=== PATIENT | male | born 1945 ===

== ENCOUNTER 2018-06-24 13:33 | Emergency (ER) | payer MEDICARE ==
[2018-06-24] MEDS ORDERED: Albuterol-Ipratrop 3 mg / 0.5 (3 ml) UD ONE (13:58)
[2018-06-24] MEDS ORDERED: Albuterol-Ipratrop 3 mg / 0.5 (3 ml) UD IH STA (14:02)
[2018-06-24] MEDS ORDERED: Albuterol 0.083% Inhal Sol (2.5 mg/3 mL) UD INH STA (14:04)
[2018-06-24] MEDS ORDERED: Albuterol 0.083% Inhal Sol (2.5 mg/3 mL) UD ONE (14:17)
--- NOTE | 2018-06-24 15:03 | RAD ---
Date of service: 06/24/2018 HISTORY: cough/wheezing COMPARISON: No prior. TECHNIQUE: Chest PA and lateral FINDINGS: LUNGS: Small opacities at the left lower lobe may represent atelectasis or scar tissue. PLEURA: No significant pleural effusion identified. No pneumothorax apparent. CARDIOVASCULAR: No aortic atherosclerotic calcification present. Normal cardiac size. No pulmonary vascular congestion. OSSEOUS STRUCTURES: No significant abnormalities. VISUALIZED UPPER ABDOMEN: Normal. OTHER FINDINGS: None. IMPRESSION: Small opacities at the left lower lobe may represent atelectasis or scar tissue.
--- NOTE | 2018-06-24 15:14 | C.PDOC ---
History Of Present Illness 73 y/o male presents to ED stating that about a month ago, he got a flu shot by Dr. Lemus and has developed respiratory symptoms since then. Patient states that he is not getting any better and for the last couple of days, he started coughing more with some colored sputum. Patient also complains of body aches and headache but denies any rash, vomiting, diarrhea, or other physical complaints. Time Seen by Provider: 06/24/18 13:40 Chief Complaint (Nursing): Cough, Cold, Congestion History Per: Patient History/Exam Limitations: no limitations Onset/Duration Of Symptoms: Days Current Symptoms Are (Timing): Still Present Past Medical History Reviewed: Historical Data, Nursing Documentation, Vital Signs Vital Signs: Last Vital Signs Temp 98.2 F 06/24/18 13:35 Pulse 87 06/24/18 13:35 Resp 17 06/24/18 13:35 BP 148/81 06/24/18 13:35 Pulse Ox 99 06/24/18 13:35 - Medical History PMH: Arthritis, HTN, Hypercholesterolemia, Hyperlipidemia Family History: States: Hypertension (father) - Social History Hx Alcohol Use: No Hx Substance Use: No - Immunization History Hx Tetanus Toxoid Vaccination: No Hx Influenza Vaccination: No Hx Pneumococcal Vaccination: No Review Of Systems Except As Marked, All Systems Reviewed And Found Negative. Constitutional: Positive for: Weakness Respiratory: Positive for: Cough, Shortness of Breath Gastrointestinal: Negative for: Vomiting, Diarrhea Skin: Negative for: Rash Physical Exam - Physical Exam Appears: Non-toxic, No Acute Distress Skin: Warm, Dry, No Rash Head: Atraumatic, Normacephalic Eye(s): bilateral: Normal Inspection, PERRL, EOMI Oral Mucosa: Moist Throat: Normal Neck: Supple Chest: Symmetrical Cardiovascular: Rhythm Regular, No Murmur Respiratory: Normal Breath Sounds, No Rales, No Rhonchi, Wheezing Gastrointestinal/Abdominal: Soft, No Tenderness Extremity: Bilateral: Atraumatic, Normal Color And Temperature, Normal ROM Neurological/Psych: Oriented x3, Normal Speech ED Course And Treatment O2 Sat by Pulse Oximetry: 99 (RA) Pulse Ox Interpretation: Normal - Other Rad Chest XR X-Ray: Read By Radiologist Interpretation: FINDINGS: LUNGS: Small opacities at the left lower lobe may represent atelectasis or scar tissue. PLEURA: No significant pleural effusion identified. No pneumothorax apparent. CARDIOVASCULAR: No aortic atherosclerotic calcification present. Normal cardiac size. No pulmonary vascular congestion. OSSEOUS STRUCTURES: No significant abnormalities. VISUALIZED UPPER ABDOMEN: Normal. OTHER FINDINGS: None. IMPRESSION: Small opacities at the left lower lobe may represent atelectasis or scar tissue. Progress Note: Gave patient nebulizer and ordered chest x-ray. On re-evaluation, patient is resting comfortably and feeling better. Patient will be discharged home and was instructed to follow up with PMD in 1-2 days for further evaluation. Disposition - Disposition Referrals: Eddie Lemus MD [Medical Doctor] - Disposition: HOME/ ROUTINE Disposition Time: 15:11 Condition: STABLE Additional Instructions: Follow up with PMD within 1-2 days. return to ED if feel worse. Prescriptions: predniSONE [predniSONE Tab] 2 tab PO DAILY #6 tab Albuterol Sulfate [Proair Hfa] 1 puff IH Q6 PRN #1 inh PRN Reason: Cough Benzonatate [Tessalon Perles] 2 tab PO TID #60 sgl Azithromycin [Zithromax] 250 mg PO DAILY #4 tab Instructions: Acute Bronchitis Forms: [employer] (Burmese) Print Language: KOSOVAN - Clinical Impression Clinical Impression: Bronchitis - PA / [employer]PER[employer]OR / Resident Statement MD/DO has reviewed & agrees with the documentation as recorded. - Scribe Statement The provider has reviewed the documentation as recorded by the Scribkatie Chun All medical record entries made by the Kristina were at my direction and personally dictated by me. I have reviewed the chart and agree that the record accurately reflects my personal performance of the history, physical exam, medical decision making, and the department course for this patient. I have also personally directed, reviewed, and agree with the discharge instructions and disposition.
[2018-06-24 15:22] VITALS: BP 145/85; PULSE 85; RESP 18; TEMP 97.8
[2018-06-24 16:35] VITALS: O2SAT 99
== END 2018-06-24 15:21 | disposition home or self-care (01) ==
LOC: C.ER 13:33
DX: J40 Bronchitis, not specified as acute or chronic (principal)

== ENCOUNTER 2018-09-17 10:24 | Outpatient (CLI) | payer MEDICARE | END 2018-09-17 10:25 | disposition home or self-care (01) | LOC: C.CTH 10:24 ==